=== PATIENT | male | born 1965 | race Caucasian/White ===

== ENCOUNTER 2018-02-27 14:37 | Emergency (ER) | payer OTHER ==
[~2018-02-27] VITALS: Ht 180.3 cm; Wt 98.9 kg
[~2018-02-27 14:37] MED LIST: ATIVAN0.5 MG PO
--- NOTE | 2018-02-27 15:33 | RADIOLOGY REPORT ---
EXAMINATION: XR KNEE, LEFT CLINICAL INFORMATION: Severe knee pain status post injury. Rule out fracture versus ligamentous/tendon injury. COMPARISON: None TECHNIQUE: Four views of the left knee. FINDINGS: No acute fracture or dislocation. Trace suprapatellar knee joint effusion. Quadriceps tendon and patellar tendon shadows intact and unremarkable. Mild narrowing of the medial femoral compartment. No significant spurring or joint calcifications. IMPRESSION: 1. No acute fracture or dislocation. 2. Trace suprapatellar knee joint effusion. 3. Mild degenerative changes in the medial femoral compartment.
--- NOTE | 2018-02-27 16:01 | ED UPPER/LOWER EXTREMITY COMPL ---
History of Present Illness General Chief Complaint: Lower Extremity Problems Stated Complaint: L KNEE INJURY? Source: patient Exam Limitations: no limitations Vital Signs & Intake/Output Vital Signs & Intake/Output Vital Signs Date Time Temp Pulse Resp B/P B/P Pulse O2 O2 Flow FiO2 Mean Ox Delivery Rate 02/27 1728 98.2 82 16 132/78 98 Room Air 02/27 1447 98.0 75 18 137/83 98 Room Air Allergies Coded Allergies: NO KNOWN ALLERGIES (02/27/18) Reconcile Medications Lorazepam (Ativan) 0.5 MG TAB 1 TAB PO Q12H PRN anxiety Oxycodone HCl/Acetaminophen (Percocet 5-325 MG Tablet) 5 MG-325 MG TABLET 1 TAB PO BID PRN PAIN Triage Note: 52M WAS WORKING OUTSIDE AND STUMBLED BACKWARDS DOWN A FOOT HEIGHT LEDGE. FELT TWIST OF L KNEE AND HAS EXCRUTIATING PAIN TO PATELLA AND LATERAL AND MEDIAL SIDES. UNABLE TO BEAR WEIGHT AT ALL. KNEE IMMOBILIZER AND ICE PACK APPLIED IN TRIAGE. MEDICATED WITH MOTRIN. DENIES HEADSTRIKE OR PAIN TO ANY OTHER BODY PARTS OR JOINTS. Triage Nurses Notes Reviewed? yes Onset: Abrupt Duration: constant Timing: single episode today Severity: severe Severity Numbers: 8 HPI: Patient is a 52-year-old male who presents emergency room seen at today while working on his he fell off from an elevated position landed on his feet and then twisted his left knee resulting acute onset of sharp stabbing left localized nonradiating knee pain. Patient states ambulation makes worse. Denies any hip or ankle pain. No medications given prior to arrival. (Shaun Vanessa) Past History Travel History Traveled to [place] past 21 day No Medical History Any Pertinent Medical History? see below for history Neurological: NONE EENT: NONE Cardiovascular: NONE Respiratory: NONE Gastrointestinal: NONE Hepatic: NONE Renal: NONE Musculoskeletal: NONE Psychiatric: depression Endocrine: NONE Blood Disorders: NONE Cancer(s): NONE SCLEROSCOPE TESTER/Reproductive: NONE Surgical History Surgical History: non-contributory, N Psychosocial History What is your primary language Armenian Tobacco Use: Never used ETOH Use: denies use Illicit Drug Use: denies illicit drug use Family History Hx Contributory? No (Shaun Vanessa) Review of Systems Review of Systems Constitutional: Reports: no symptoms. EENTM: Reports: no symptoms. Respiratory: Reports: no symptoms. Cardiovascular: Reports: no symptoms. Gastrointestinal/Abdominal: Reports: no symptoms. Genitourinary: Reports: no symptoms. Musculoskeletal: Reports: see HPI, joint pain. Skin: Reports: no symptoms. Neurological/Psychological: Reports: no symptoms. Hematologic/Endocrine: Reports: no symptoms. Immunological: Reports: no symptoms. All Other Systems: Reviewed and Negative (Shaun Vanessa) Physical Exam Physical Exam General Appearance: alert, mild distress Head: atraumatic Eyes: Bilateral: normal appearance. Ears, Nose, Throat: hearing grossly normal Neck: normal inspection Cardiovascular/Respiratory: no respiratory distress Neurologic/Tendon: normal sensation, normal motor functions, normal tendon functions, responds to pain, no evidence tendon injury, no pulse deficit Skin: intact, normal color, warm/dry Comments: Left hip normal inspection patient able to perform straight leg raise Left knee noted up with 2 point tenderness and decreased active range of motion Mild laxity with pain with anterior drawer test and Savannah's negative valgus stress test negative varus stress test Left lower extremity dermatomes intact (Shaun Vanessa) Progress Differential Diagnosis: arterial insufficiency, compartment syndrome, contusion, dislocation, DVT, fracture, gout, septic arthritis, sprain, tendon injury Plan of Care: Orders Procedure Date/time Status Durable Medical Equipment 02/27 1721 Active Due to history of present illness and exam findings patient has suspicion of left knee sprain and ACL sprain knee immobilizer was placed patient was given crutches pre-and post-neurovascular was intact x-rays were resulted no osseous injury patient was strongly advised to follow-up with orthopedic doctor Diagnostic Imaging: Viewed by Me: Radiology Read. Radiology Impression: no fracture Comments: PATIENT: FLORINDA LAWRENCE PRESENT AGE: 52 PATIENT ACCOUNT NO: [id number] : 65 LOCATION: [facility] ORDERING PHYSICIAN: Joe Hernandez DO (TBS) SERVICE DATE: 02/27/18 EXAM TYPE: RAD - XRY-KNEE COMPLETE LEFT EXAMINATION: XR KNEE, LEFT CLINICAL INFORMATION: Severe knee pain status post injury. Rule out fracture versus ligamentous/tendon injury. COMPARISON: None TECHNIQUE: Four views of the left knee. FINDINGS: No acute fracture or dislocation. Trace suprapatellar knee joint effusion. Quadriceps tendon and patellar tendon shadows intact and unremarkable. Mild narrowing of the medial femoral compartment. No significant spurring or joint calcifications. IMPRESSION: 1. No acute fracture or dislocation. 2. Trace suprapatellar knee joint effusion. 3. Mild degenerative changes in the medial femoral compartment. DICTATED BY: Sherwin ZAMORA,Gosia Guevara DATE/TIME DICTATED:02/27/181527 RECLAMATION ENGINEER:BRIELLE (Shaun Vanessa) Departure Departure Disposition: HOME OR SELF CARE Condition: Stable Clinical Impression Primary Impression: Left knee sprain Referrals: Robert ZAMORA,Abdiel Raman (PCP/Family) Giovanni ZAMORA,Tono Additional Instructions: as discussed begin icing the area directly 20 minutes every 2 hours, begin over- the-counter ibuprofen for pain and inflammation, begin the prescription of Percocet for pain on Thursday if no better follow-up with orthopedic Dr. Davila for further evaluation treatment. If symptoms worsen return to emergency room. Prescriptions waiting at [facility]. Begin using the crutches until he can walk without pain and the knee immobilizer until you can walk without pain. Departure Forms: Customer Survey General Discharge Information Prescriptions: Current Visit Scripts Oxycodone HCl/Acetaminophen (Percocet 5-325 MG Tablet) 1 TAB PO BID PRN PAIN #10 TAB (Shaun Vanessa) PA/DIAPER MACHINE TENDER Co-Sign Statement Statement: ED Attending supervision documentation- I saw and evaluated the patient. I have also reviewed all the pertinent lab results and diagnostic results. I agree with the findings and the plan of care as documented in the PA's/DIAPER MACHINE TENDER's documentation. x I have reviewed the ED Record and agree with the PA's/DIAPER MACHINE TENDER's documentation. [] Additions or exceptions (if any) to the PAs/DIAPER MACHINE TENDER's note and plan are summarized below: [] (Wes ZAMORA,Lorne)
[2018-02-27] MEDS ORDERED: PERCOCET 5-3251 EACH PO (17:15)
[2018-02-27 17:28] VITALS: BP 132/78
== END 2018-02-27 17:29 ==
LOC: ERH 14:37
DX: S83.92XA Sprain of unspecified site of left knee, initial encounter (principal); W17.89XA Other fall from one level to another, initial encounter; X58.XXXA Exposure to other specified factors, initial encounter; Y92.9 Unspecified place or not applicable; Y93.9 Activity, unspecified
CPT/HCPCS: 73562-LT